=== PATIENT | female | born 1980 | race Caucasian/White ===

== ENCOUNTER 2019-11-25 14:05 | Emergency (ER) | payer SELFPAY ==
[2019-11-25] MEDS ORDERED: Sodium Chloride 0.9% 10 ML Syringe FLUSH PRN (14:32)
[2019-11-25] MEDS ORDERED: LORazepam 2 MG/ML SDV IVPUSH ONE ×2 (14:32→14:40)
--- NOTE | 2019-11-25 14:41 | EDM.PDOC ---
ED HPI GENERAL MEDICAL PROBLEM - General Chief Complaint: Neurological Problem Stated Complaint: BROUGHT IN BY Time Seen by Provider: 11/25/19 14:22 Source of Information: Reports: Patient, Family, RN Notes Reviewed History Limitations: Reports: Altered Mental Status - History of Present Illness INITIAL COMMENTS - FREE TEXT/NARRATIVE: Minda presents today with her . Her reports her workplace telephoned him because Minda was not able to speak clearly or make sense. He picked her up in private vehicle and drove from [place]. On the drive, the lulu pena had a seizure where she could not speak, her left arm was stiff and she was incontinent or urine. Upon arrival to the emergency room patient confused to place, time, situation, drowsy. Airway intact. Patient and her deny any exposure to COVID19. Patient reports chronic headaches as an adult. Patient reports increased stress lately. Patient and her deny fever, chills, nausea, vomiting, cough, chest pain, SOB, difficulty breathing, diarrhea, constipation or other concerns. Social: Patient smokes <1ppd cigarettes Social use of alcohol Social use of marijuana, last time was last night. No use of other illicit drugs. 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: Social & Family History - Tobacco Use Smoking Status *Q: Current Every Day Smoker Years of Tobacco use: 20 Packs/Tins Daily: 0.5 - Caffeine Use Caffeine Use: Reports: None - Recreational Drug Use Recreational Drug Use: Yes Drug Use in Last 12 Months: Yes Recreational Drug Type: Reports: Marijuana/Hashish Recreational Drug Use Frequency: Socially ED ROS GENERAL - Review of Systems Review Of Systems: See Below Constitutional: Reports: No Symptoms HEENT: Reports: No Symptoms Respiratory: Reports: No Symptoms Cardiovascular: Reports: No Symptoms Endocrine: Reports: No Symptoms GI/Abdominal: Reports: No Symptoms : Reports: No Symptoms Musculoskeletal: Reports: No Symptoms Skin: Reports: No Symptoms Neurological: Reports: Confusion, Seizure, Change in Speech Psychiatric: Reports: Agitation, Confusion Hematologic/Lymphatic: Reports: No Symptoms Immunologic: Reports: No Symptoms - Physical Exam Exam: See Below Text/Narrative:: Minda is a post-ictal 38 year old female presenting with complaints of seizure and bladder incontinence 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 It was reported that she had speech difficulty and confusion prior to seizure activity. Exam Limited By: Altered Mental Status (post-ictal) General Appearance: Lethargic, Moderate Distress Eye Exam: Bilateral Eye: EOMI, Normal Inspection, PERRL Ears: Normal External Exam, Normal Canal, Hearing Grossly Normal, Normal TMs Nose: Normal Inspection, Normal Mucosa, No Blood Throat/Mouth: Normal Lips, Normal Voice, No Airway Compromise, Other (halitosis, significant plaque to all teeth, multiple dental caries.) Head Exam: Atraumatic, Normocephalic. No: Scalp Tenderness, Facial Ecchymosis, Facial Lacerations, Facial Swelling, Facial Tenderness, Sinus Tenderness Neck: Normal Inspection, Supple, Non-Tender, Full Range of Motion. No: Lymphadenopathy (R), Lymphadenopathy (L) Respiratory/Chest: No Respiratory Distress, Lungs Clear, Normal Breath Sounds, No Accessory Muscle Use, Chest Non-Tender. No: Crackles, Rales, Rhonchi, Wheezing, Accessory Muscle Use Cardiovascular: Normal Peripheral Pulses, Regular Rate, Rhythm, No Edema, No Gallop, No Murmur, No Rub GI/Abdominal: Normal Bowel Sounds, Soft, Non-Tender, No Organomegaly, No Distention, No Mass. No: Guarding, Rebound, Tender Neuro Exam (Abbreviated): Inattentive, Confused, Disoriented, Slow to Respond, Other (Follows instructions) DTR: 2+: Patella (R), Patella (L) Back Exam: Normal Inspection, Full Range of Motion. No: CVA Tenderness (R), CVA Tenderness (L) Extremities: Normal Inspection, Normal Range of Motion, Non-Tender, No Pedal Edema, Normal Capillary Refill Psychiatric: Normal Affect, Normal Mood Skin Exam: Warm, Dry, Intact, Normal Color, No Rash EKG INTERPRETATION EKG Date: 11/25/19 Time: 15:00 Rhythm: NSR Rate (Beats/Min): 86 [place]: Normal P-Wave: Present QRS: Normal ST-T: Normal QT: Normal Comparison: NA - No Prior EKG Course - Vital Signs Last Recorded V/S: Last Vital Signs Temp 36.5 C 11/25/19 14:08 Pulse 82 11/25/19 16:45 Resp 21 H 11/25/19 16:45 BP 121/79 11/25/19 16:45 Pulse Ox 96 11/25/19 16:45 - Orders/Labs/Meds Orders: Active Orders 24 hr Category Date Time Status Saline Lock Insert [OM.PC] Routine Oth 11/25/19 14:32 Ordered EKG 12 Lead [EK] Routine Ther 11/25/19 14:36 Ordered Labs: Laboratory Tests 11/25/19 11/25/19 11/25/19 Range/Units 14:25 14:25 14:40 WBC 7.5 (4.5-11.0) K/uL RBC 4.86 (3.30-5.50) M/uL Hgb 15.0 (12.0-15.0) g/dL Hct 45.9 (36.0-48.0) % MCV 94 (80-98) fL MCH 31 (27-31) pg MCHC 33 (32-36) % Plt Count 219 (150-400) K/uL Neut % (Auto) 44 (36-66) % Lymph % (Auto) 47 H (24-44) % [place] % (Auto) 8 H (2-6) % Eos % (Auto) 1 L (2-4) % Baso % (Auto) 1 (0-1) % Sodium (140-148) mmol/L Potassium (3.6-5.2) mmol/L Chloride (100-108) mmol/L Carbon Dioxide (21-32) mmol/L Anion Gap (5.0-14.0) mmol/L BUN (7-18) mg/dL Creatinine (0.6-1.0) mg/dL Est Cr Clr Drug Dosing mL/min Estimated GFR (MDRD) (>60) Glucose (74-106) mg/dL Calcium (8.5-10.1) mg/dL Magnesium (1.8-2.4) mg/dL Total Bilirubin (0.2-1.0) mg/dL AST (15-37) U/L ALT (12-78) U/L Alkaline Phosphatase (46-116) U/L Total Protein (6.4-8.2) g/dL Albumin (3.4-5.0) g/dL Globulin (2.3-3.5) g/dL Albumin/Globulin Ratio (1.2-2.2) Free T4 1.01 (0.76-1.46) ng/dL Free T3 2.83 (2.18-3.98) pg/dL TSH, Ultra Sensitive (0.358-3.740) uIU/mL Urine Color (YELLOW) Urine Appearance (CLEAR) Urine pH (5.0-8.0) Ur Specific [place] (1.008-1.030) Urine Protein (NEGATIVE) mg/dL Urine Glucose (UA) (NEGATIVE) mg/dL Urine Ketones (NEGATIVE) mg/dL Urine Occult Blood (NEGATIVE) Urine Nitrite (NEGATIVE) Urine Bilirubin (NEGATIVE) Urine Urobilinogen (0.2-1.0) EU/dL Ur Leukocyte Esterase (NEGATIVE) Urine RBC (0-5) Urine WBC (0-5) Ur Epithelial Cells Urine Bacteria Urine Opiates Screen (NEGATIVE) Ur Oxycodone Screen (NEGATIVE) Urine Methadone Screen (NEGATIVE) Ur Propoxyphene Screen (NEGATIVE) Ur Barbiturates Screen (NEGATIVE) Ur Tricyclics Screen (NEGATIVE) Ur Phencyclidine Scrn (NEGATIVE) Ur Amphetamine Screen (NEGATIVE) U Methamphetamines Scrn (NEGATIVE) Urine MDMA Screen (NEGATIVE) U Benzodiazepines Scrn (NEGATIVE) U Cocaine Metab Screen (NEGATIVE) U Marijuana (THC) Screen (NEGATIVE) 11/25/19 11/25/19 11/25/19 Range/Units 14:40 15:34 16:03 WBC (4.5-11.0) K/uL RBC (3.30-5.50) M/uL Hgb (12.0-15.0) g/dL Hct (36.0-48.0) % MCV (80-98) fL MCH (27-31) pg MCHC (32-36) % Plt Count (150-400) K/uL Neut % (Auto) (36-66) % Lymph % (Auto) (24-44) % [place] % (Auto) (2-6) % Eos % (Auto) (2-4) % Baso % (Auto) (0-1) % Sodium 140 (140-148) mmol/L Potassium 3.6 (3.6-5.2) mmol/L Chloride 103 (100-108) mmol/L Carbon Dioxide 17 L (21-32) mmol/L Anion Gap 23.6 H (5.0-14.0) mmol/L BUN 8 (7-18) mg/dL Creatinine 1.0 (0.6-1.0) mg/dL Est Cr Clr Drug Dosing 58.69 mL/min Estimated GFR (MDRD) > 60 (>60) Glucose 101 (74-106) mg/dL Calcium 8.8 (8.5-10.1) mg/dL Magnesium 2.3 (1.8-2.4) mg/dL Total Bilirubin 0.4 (0.2-1.0) mg/dL AST 18 (15-37) U/L ALT 26 (12-78) U/L Alkaline Phosphatase 65 (46-116) U/L Total Protein 7.9 (6.4-8.2) g/dL Albumin 4.2 (3.4-5.0) g/dL Globulin 3.7 H (2.3-3.5) g/dL Albumin/Globulin Ratio 1.1 L (1.2-2.2) Free T4 (0.76-1.46) ng/dL Free T3 (2.18-3.98) pg/dL TSH, Ultra Sensitive 2.002 (0.358-3.740) uIU/mL Urine Color Yellow (YELLOW) Urine Appearance Clear (CLEAR) Urine pH 6.5 (5.0-8.0) Ur Specific [place] 1.015 (1.008-1.030) Urine Protein Negative (NEGATIVE) mg/dL Urine Glucose (UA) Negative (NEGATIVE) mg/dL Urine Ketones Negative (NEGATIVE) mg/dL Urine Occult Blood Trace-intact H (NEGATIVE) Urine Nitrite Negative (NEGATIVE) Urine Bilirubin Negative (NEGATIVE) Urine Urobilinogen 0.2 (0.2-1.0) EU/dL Ur Leukocyte Esterase Negative (NEGATIVE) Urine RBC Not seen (0-5) Urine WBC Not seen (0-5) Ur Epithelial Cells Not seen Urine Bacteria Not seen Urine Opiates Screen Negative (NEGATIVE) Ur Oxycodone Screen Negative (NEGATIVE) Urine Methadone Screen Negative (NEGATIVE) Ur Propoxyphene Screen Negative (NEGATIVE) Ur Barbiturates Screen Negative (NEGATIVE) Ur Tricyclics Screen Negative (NEGATIVE) Ur Phencyclidine Scrn Negative (NEGATIVE) Ur Amphetamine Screen Negative (NEGATIVE) U Methamphetamines Scrn Negative (NEGATIVE) Urine MDMA Screen Negative (NEGATIVE) U Benzodiazepines Scrn Negative (NEGATIVE) U Cocaine Metab Screen Negative (NEGATIVE) U Marijuana (THC) Screen Presumptive positive H (NEGATIVE) Patient lab work reviewed, no significant findings noted. Meds: Medications Discontinued Medications Generic Name Dose Route Start Last Admin Trade Name Freq PRN Reason Stop Dose Admin Sodium Chloride 1,000 mls @ 1,000 mls/hr 11/25/19 15:24 11/25/19 15:49 Normal Saline IV 11/25/19 16:23 1,000 mls/hr .BOLUS ONE Administration Ketorolac Tromethamine 30 mg 11/25/19 17:00 11/25/19 17:13 Toradol IVPUSH 11/25/19 17:01 30 mg ONETIME ONE Administration Lorazepam 1 mg 11/25/19 14:32 11/25/19 14:41 Ativan IVPUSH 11/25/19 14:33 1 mg ONETIME ONE Administration Lorazepam 1 mg 11/25/19 14:40 Ativan IVPUSH 11/25/19 14:41 ONETIME ONE Sodium Chloride 10 ml 11/25/19 14:32 11/25/19 14:41 Saline Flush FLUSH 10 ml ASDIRECTED PRN Administration Keep Vein Open - Radiology Interpretation Free Text/Narrative:: Head CT without contrast shows no acute findings. Chest x-ray shows no acute findings. - Re-Assessments/Exams Free Text/Narrative Re-Assessment/Exam: 11/25/19 15:25 Patient laying in bed, visiting with , alert and oriented, denies pain or other complaints. 11/25/19 15:55 Patient up to ambulate to bathroom. 11/25/19 16:35 Patient resting on stretcher, no complaints, no seizure activity, visiting with . Reviewed plan and discussion with Dr. Melara, patient and her are in agreement with plan. Departure - Departure Time of Disposition: 17:14 Disposition: Home, Self-Care 01 Condition: Good Clinical Impression: Seizure - Discharge Information *PRESCRIPTION DRUG MONITORING PROGRAM REVIEWED*: Not Applicable *COPY OF PRESCRIPTION DRUG MONITORING REPORT IN PATIENT TAIWO: Not Applicable Instructions: Seizure, Adult, [id number] Referrals: PCP,None [Primary Care Provider] - Forms: ED Department Discharge Additional Instructions: You have been evaluated and treated for a witnessed seizure. Head CT negative for acute findings Chest x-ray and EKG normal Blood work showed no acute findings Urine had microscopic hematuria without signs of infection Vital signs and telemetry monitoring were normal Dr. Ligia Cole was consulted. He recommends no driving for 3 months. No use of alcohol or illicit drugs/substances. Eat a normal diet, stay hydrated Follow up with primary provider in 3 to 7 days for recheck, neurology referral, outpatient MRI and EEG. If any more seizure activity, issues or concerns return to the emergency room for care. Sepsis Event Note (ED) - Evaluation Sepsis Screening Result: No Definite Risk - Focused Exam Vital Signs: Vital Signs Temp Pulse Resp BP Pulse Ox 11/25/19 16:45 82 21 H 121/79 96 11/25/19 16:11 63 20 118/75 98 11/25/19 15:13 102 H 15 134/75 100 11/25/19 14:45 108 H 15 137/77 97 11/25/19 14:08 36.5 C 91 22 H 126/86 96 - My Orders Last 24 Hours: My Active Orders 11/25/19 14:32 Saline Lock Insert [OM.PC] Routine 11/25/19 14:36 EKG 12 Lead [EK] Routine - Assessment/Plan Last 24 Hours: My Active Orders 11/25/19 14:32 Saline Lock Insert [OM.PC] Routine 11/25/19 14:36 EKG 12 Lead [EK] Routine Assessment:: Seizure Plan: Patient evaluated and treated for a witnessed seizure. Head CT negative for acute findings Chest x-ray and EKG normal Blood work showed no acute findings Urine had microscopic hematuria without signs of infection Vital signs and telemetry monitoring were normal Dr. Ligia Cole was consulted. He recommends no driving for 3 months. No use of alcohol or illicit drugs/substances. Eat a normal diet, stay hydrated Follow up with primary provider in 3 to 7 days for recheck, neurology referral, outpatient MRI and EEG. If any more seizure activity, issues or concerns return to the emergency room for care.
--- NOTE | 2019-11-25 15:23 | CT ---
Head wo Cont CLINICAL HISTORY: Seizure COMPARISON: None TECHNIQUE: Transverse scans were obtained from the base of the skull through the vertex without IV contrast on a multislice, multidetector CT scanner. Auto dosage reduction and iterative reconstruction techniques employed. FINDINGS: No abnormal parenchymal density is identified. There is no mass effect, hemorrhage, or extraaxial collection. The basal cisterns and sulci over the convexities are normal. The ventricles are normal. IMPRESSION: No acute intracranial process seen
[2019-11-25] MEDS ORDERED: Sodium Chloride 0.9% 1,000 ML IV ONE (15:24)
--- NOTE | 2019-11-25 15:24 | CR ---
CHEST: AP 11/25/2019 at 1451 CLINICAL HISTORY:Seizure COMPARISON:None FINDINGS: The heart size, pulmonary vascularity and hilar structures are normal. No infiltrate effusion or pneumothorax is seen. IMPRESSION: No acute cardiopulmonary process.
[2019-11-25] MEDS ORDERED: Ketorolac 30 MG/ML SDV IVPUSH ONE (17:00)
== END 2019-11-25 17:24 | disposition home or self-care (01) ==
LOC: JP.ED 14:05
DX: R56.9 Unspecified convulsions (principal); F17.210 Nicotine dependence, cigarettes, uncomplicated; K02.9 Dental caries, unspecified
CPT/HCPCS: 36415; 70450; 71045; 80053; 80305; 81001; 83735; 84439; 84443; 84481; 85025; 93005; 96361; 96374; 96375; 99285; J1885; J2060; J7030